=== PATIENT | female | born 1965 ===

== ENCOUNTER 2017-12-10 06:18 | Day surgery (SDC) | payer BC ==
[2017-12-02 13:44] VITALS: BMI 33.7
[2017-12-10] MEDS ORDERED: Midazolam HCl 2 mg/2 ml Vial ONE (06:31)
[2017-12-10] MEDS ORDERED: Fentanyl 100 MCG/2 ML VIAL ONE (06:31)
[2017-12-10] MEDS ORDERED: Lidocaine 1% (PF) 30 ML VIAL ONE (06:50)
[2017-12-10] MEDS ORDERED: CEFAZOLIN/Water 2 GM/20 ML SYRINGE ONE (07:36)
[2017-12-10] MEDS ORDERED: traMADol HCl 50 MG TAB PO PRN ×2 (07:48)
[2017-12-10] MEDS ORDERED: Ondansetron HCl/PF 4 MG/2 ML Vial IVP PRN (07:48)
[2017-12-10] MEDS ORDERED: Ketorolac Tromethamine 30 MG/ML VIAL IVP PRN (07:48)
[2017-12-10] MEDS ORDERED: Promethazine HCl 25 MG/ML VIAL IM PRN (07:48)
[2017-12-10] MEDS ORDERED: Zolpidem Tartrate 5 MG TAB PO PRN (07:48)
[2017-12-10] MEDS ORDERED: Ropivacaine 0.2% 550 ML 550 ML NERVE BLCK SCH (07:48)
[2017-12-10] MEDS ORDERED: HYDROcodone/Acetaminophen 10/325 mg Tablet PO PRN ×2 (07:48)
[2017-12-10] MEDS ORDERED: Fentanyl 100 MCG/2 ML VIAL IV PRN (07:48)
[2017-12-10] MEDS ORDERED: PROPOFOL 20 ML ONE (07:49)
[2017-12-10] MEDS ORDERED: Promethazine HCl 25 MG/ML VIAL ONE (08:04)
[2017-12-10] MEDS ORDERED: Albuterol Sulfate HFA (OR ONLY) ONE (08:52)
--- NOTE | 2017-12-10 10:20 | OP ---
DATE OF PROCEDURE: 12/10/2017 PREOPERATIVE DIAGNOSIS: Rotator cuff tear, right shoulder. POSTOPERATIVE DIAGNOSES: Rotator cuff tear, right shoulder. SURGEON: Coleman Belcher M.D. ANESTHESIA: General. BLOOD LOSS: Minimal. SPECIMEN: None. DRAINS: None. COMPLICATIONS: None. DESCRIPTION OF PROCEDURE: The patient was taken to the operating room where general anesthesia was i nduced. The patient was placed in left lateral decubitus position. Right arm was placed in traction , prepped, and draped in usual sterile fashion. I examined the joint. There was some degenerative t earing of the labrum. I did not feel this is significant. The biceps tendon appeared to be in good condition. There was a fairly large rotator cuff tear. I freshened up the greater tuberosity. I fr eshened up the rotator cuff. I performed subacromial decompression. I mobilized the rotator cuff. I placed two double loaded corkscrew suture anchors through the freshened bone and passed sutures thr ough the tendon, tied the tendon back to bone with a good repair, although probably not quite waterti ght because this was extended up into the biceps area. I then reinforced with a double row using a S wiveLock device. Sutures were cut. Irrigation performed. Portals closed with nylon suture. Steril e dressings applied.
== END 2017-12-10 12:40 | disposition home or self-care (01) ==
LOC: SDC 06:18
PROVIDERS: ATTEND Orthopaedic Surgery
PROC: 0LU14JZ Supplement Right Shoulder Tendon with Synthetic Substitute, Percutaneous Endoscopic Approach (ICD-10-PCS; principal; 2017-12-10)
PROC: 0RNJ4ZZ Release Right Shoulder Joint, Percutaneous Endoscopic Approach (ICD-10-PCS; principal; 2017-12-10)
PROC: 0LQ14ZZ Repair Right Shoulder Tendon, Percutaneous Endoscopic Approach (ICD-10-PCS; principal; 2017-12-10)
DX: M75.101 Unspecified rotator cuff tear or rupture of right shoulder, not specified as traumatic (principal); G43.909 Migraine, unspecified, not intractable, without status migrainosus; J45.909 Unspecified asthma, uncomplicated; I11.0 Hypertensive heart disease with heart failure; I50.20 Unspecified systolic (congestive) heart failure; Z79.51 Long term (current) use of inhaled steroids; Z79.84 Long term (current) use of oral hypoglycemic drugs; Z79.82 Long term (current) use of aspirin; Z79.899 Other long term (current) drug therapy; Z88.8 Allergy status to other drugs, medicaments and biological substances; Z91.041 Radiographic dye allergy status
CPT/HCPCS: A4306; C1713; G8984-GP-CK; G8985-GP-CK; G8986-GP-CK; J2001; J2250; J2550; J2704; J2795; J3010

== ENCOUNTER 2018-03-30 10:21 | Outpatient (CLI) | payer BC | END 2018-03-30 10:22 | disposition home or self-care (01) | LOC: BICMAMMO 10:21 | PROVIDERS: ATTEND Internal Medicine | DX: Z12.31 Encounter for screening mammogram for malignant neoplasm of breast (principal); R92.1 Mammographic calcification found on diagnostic imaging of breast | CPT/HCPCS: 77063; 77067 ==